=== PATIENT | male | born 1940 | race Caucasian/White ===

== ENCOUNTER 2018-10-21 10:05 | Outpatient (CLI) | payer MEDICARE, BC ==
--- NOTE | 2018-10-21 20:04 | ULT ---
BILATERAL LOWER EXTREMITY VENOUS ULTRASOUND 10/21/18 Color duplex Doppler ultrasonography of the deep veins of each lower extremity was performed. All joseph p veins were freely compressible from groin to ankle. There was normal Doppler responses to augmentat ion maneuvers. No echogenic clot was seen in either leg. IMPRESSION: No evidenced of DVT in either lower extremity. POS: HOME
--- NOTE | 2018-10-21 20:13 | ULT ---
BILATERAL LOWER EXTREMITY ARTERIAL ULTRASOUND: 10/21/18 Color duplex Doppler ultrasonography of the arterial system of each lower extremity was performed for evaluation of edema. Documentary images and worksheets were provided and reviewed. In general, the flows in each lower extremity were roughly comparable, however, the velocities even i n the common femoral artery were significantly reduced from normal. Because of this, this raises the question of potential stenoses in the iliac arteries upstream. Velocities measured follow(cm/s): Common femoral: 58 right, 60 left SVA: 52 - 41 right, 56 - 53 left. Popliteal: 44 right, 46 left. Proximal posterior tibial: 53 right, 70 left. Dorsalis pedis: 48 right, 62 left. Most waveforms through each SFA were biphasic in nature. They were monophasic in the popliteal arteri es and also in the dorsalis pedis arteries. IMPRESSION: Roughly comparable blood flow to each lower extremity but the common femoral artery velocities are le ss than normal on each side. The possibility of iliac artery stenoses upstream is raised. POS: HOME
== END 2018-10-21 10:06 | disposition home or self-care (01) ==
LOC: BURULT 10:05
PROVIDERS: ATTEND Nurse Practitioner Family
DX: R60.0 Localized edema (principal); T14.8XXD Other injury of unspecified body region, subsequent encounter
CPT/HCPCS: 93923; 93970

== ENCOUNTER 2019-03-27 09:30 | Emergency (ER) | payer MEDICARE, BC ==
[2019-03-27] MEDS ORDERED: Aspirin Chewable 81 MG TAB ONE (09:50)
[2019-03-27 10:08] LABS: #Basophils 0.1 thou/uL (0.0-0.2); #Eosinphils 0.2 thou/uL (0.0-0.7); #Lymphocytes 1.3 thou/uL (1.20-3.40); #Monocytes 0.6 thou/uL (0.11-0.59); #Neutrophils 5.2 thou/uL (1.40-6.50); %Basophils 0.8 % (0.0-1.0); %Eosinophils 2.9 % (0.0-10.0); %Lymphocytes 17.9 % (21.0-51.0); %Monocytes 8.6 % (0.0-10.0); %Neutrophils 69.8 % (42.0-75.0); Hemoglobin 14.3 g/dL (14.0-18.0); Mean Corpuscular HGB CONC 31.9 g/dL (32.0-36.0); Mean Corpuscular Hemoglobin 29.4 pg (27.0-31.0); Mean Corpuscular Volume 92.4 fL (78.0-98.0); Mean Platelet Volume 9.5 fL (7.4-10.4); Platelet Count 156 thou/uL (130-400); RBC Distribution Width 12.1 % (11.5-14.5); Red Blood Cell (RBC) Count 4.84 mill/uL (4.70-6.10); White Blood Cell (WBC) Count 7.5 thou/uL (4.8-10.8)
[2019-03-27 10:23] LABS: ALT (SGPT) 25 U/L (8-55); AST (SGOT) 25 U/L (5-34); Albumin 3.7 g/dL (3.4-4.8); Alkaline Phosphatase 467 U/L (40-110); Anion Gap 17 mmol/L (10-20); BUN (Urea Nitrogen) 42 mg/dL (8.4-25.7); Bilirubin, Total 0.5 mg/dL (0.2-1.2); Calc. Creatinine Clearance 0 mL/min (70-130); Calcium 9.3 mg/dL (7.8-10.44); Carbon Dioxide 21 mmol/L (23-31); Chloride 104 mmol/L (98-107); Estimated GFR-MDRD 25; Globulin 3.5 g/dL (2.4-3.5); Glucose 195 mg/dL (83-110); Lipase 33 U/L (8-78); Potassium 5.6 mmol/L (3.5-5.1); Protein, Total 7.2 g/dL (5.8-8.1); Sodium 136 mmol/L (136-145)
[2019-03-27] MEDS ORDERED: traMADol HCl 50 MG TAB ONE (10:55)
[2019-03-27] MEDS ORDERED: Enoxaparin Sodium 100 MG/ML SYRINGE ONE (10:55)
--- NOTE | 2019-03-27 13:22 | RAD ---
PORTABLE CHEST: DATE: 03/27/2019. FINDINGS: No prior films were available for comparison. This portable film at 0951 shows a normal-sized heart and clear lungs. There is some faint calcifica tion in the aortic arch. There is no congestion of vessels or pleural effusions. IMPRESSION: Arteriosclerotic change as noted. POS: HOME
== END 2019-03-27 11:51 | disposition short-term general hospital (02) ==
LOC: BURERS 09:30
DX: R07.9 Chest pain, unspecified (principal); E11.9 Type 2 diabetes mellitus without complications; I10 Essential (primary) hypertension
CPT/HCPCS: 71045; 80053; 83690; 84484; 85025; 85379; 93005; 94760; 96372; J1650

== ENCOUNTER 2019-04-04 09:25 | Outpatient (CLI) | payer MEDICARE, BC ==
--- NOTE | 2019-04-04 18:56 | CT ---
CT ABDOMEN WITHOUT CONTRAST: Date: 04-04-[address] was done in response to abnormalities on a recent MRI and renal ultrasound. Unfortunately, due t o the patient's poor renal function, the scan could only be done without contrast, so the areas in qu estion really cannot be fully characterized on CT. FINDINGS: Nevertheless, one does see a 2 cm hypodense mass in the lower pole of the right kidney. Its CT number s are in the 12-13 range which is close to fluid density. There may even be a more central extension of it that is acting more like a parapelvic cyst. The left kidney has a 2 cm lesion in the lateral pa rt of its middle third. Its CT numbers measure around 7-8 units which is in keeping with fluid densit y. There is some perinephric stranding around each kidney which is a nonspecific finding. I would not e that a 2015 MRI of the lumbar spine noted a 3.4 cm lobulated cyst in the right kidney. There is no hydronephrosis is either kidney. Otherwise, the lung bases are clear. The liver, spleen, pancreas, adrenal glands, and abdominal aorta showed no acute findings within the limitations of a noncontrast scan. There has been a prior cholec ystectomy. The visible portions of bowel showed no acute findings. There was no free air or free flui d present. Extensive degenerative changes are seen in the lumbar spine with central canal stenosis at particular ly L3-4 and L4-5. There is a prominent coarsening to the trabecular markings of the right iliac bone and perhaps the right side of the sacrum. The appearance is most likely due to Paget's disease. IMPRESSION: 2 cm cystic areas in each kidney, the one on the right being possibly more lobulated and slightly lar ramonita than measured. The lack of IV contrast does not allow me to characterize them further. The fact t hat their CT densities are rather low makes it likely that they are cystic in nature which reduces th e probability of malignancy. It might be easiest for the patient to consider a follow up renal ultras ound in 6 months or so to check stability. POS: HOME
== END 2019-04-04 09:26 | disposition home or self-care (01) ==
LOC: BURCT 09:25
PROVIDERS: ATTEND Family Medicine
DX: N28.89 Other specified disorders of kidney and ureter (principal); N28.1 Cyst of kidney, acquired; R93.421 Abnormal radiologic findings on diagnostic imaging of right kidney; R93.422 Abnormal radiologic findings on diagnostic imaging of left kidney
CPT/HCPCS: 74150

== ENCOUNTER 2019-12-23 10:41 | Outpatient (CLI) | payer MEDICARE, BC ==
--- NOTE | 2019-12-27 07:12 | RAD ---
CHEST TWO VIEWS: 12/23/19 Comparison with the 08/21 study shows no adverse interval change. The heart is normal in size and the lungs are clear. No acute infiltrate or effusion was seen. The lungs are slightly hyperexpanded. Calc ification is seen in the aortic arch. A healed prior fracture of the distal right clavicle was noted. IMPRESSION: No acute finding. POS: HOME
--- NOTE | 2019-12-27 07:12 | RAD ---
PELVIS: 12/23/19 The trabecular markings involving the right iliac bone, ischium and pubic bone are all quite coarse. The same is true of the proximal femur. These findings in appearance are compatible with a diagnosis of Paget's disease, which is a known cause for an increased alkaline phosphatase. No bony fractures w ere detected. The right SI joint may be involved by the process. 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 POS: HOME
--- NOTE | 2019-12-27 07:12 | RAD ---
ABDOMEN: Date: 12/23/2019 Supine and erect films show no free air beneath the diaphragm. The gas pattern is unremarkable. There is mild increase in fecal material in the colon. No calcifications of concern were noted. Coarsening of the trabecular markings in the right iliac, ischium, and pubic bones and the proximal left femur are typical of Paget's disease. There may be some involvement of the right SI joint by this process. IMPRESSION: 1. No acute abdominal findings. 2. Findings compatible with Paget's disease of the right coxal bones and the proximal left femur. POS: HOME
== END 2019-12-23 10:42 | disposition home or self-care (01) ==
LOC: BURRAD 10:41
PROVIDERS: ATTEND Family Medicine
DX: N28.1 Cyst of kidney, acquired (principal); R74.8 Abnormal levels of other serum enzymes; M88.89 Osteitis deformans of multiple sites
CPT/HCPCS: 71046; 72170; 74019